=== PATIENT | female | born 1980 | race Caucasian/White ===

== ENCOUNTER 2020-10-14 11:20 | Emergency (ER) | payer OTHER, SELFPAY ==
[2020-10-14 11:47] VITALS: BP 150/85; PULSE 85; RESP 16; TEMP 36.7; O2SAT 98
--- NOTE | 2020-10-14 12:15 | ED.SKABFB ---
HPI - Skin/Abscess/Foreign Bdy General Chief complaint: Skin/Abscess/Foreign Body Stated complaint: Rash on Side Source: patient Mode of arrival: ambulatory Limitations: no limitations History of Present Illness HPI narrative: Patient is a 40-year-old female who presents complaining of rash to left inner thigh x1 day. She reports feeling irritation and burning while at work. She reports large reddened area to left inner thigh, warmth and tenderness. She denies using new lotions, detergents, soaps or any new foods. She denies a history of allergies. She denies using any [id number] medications at this time. complaint: rash Related Data Home Medications Medication Instructions Recorded Confirmed No Home Medications 10/14/20 10/14/20 Allergies Allergy/AdvReac Type Severity Reaction Status Date / Time No Known Allergies Allergy Verified 10/14/20 11:42 Review of Systems Review of Systems: Narrative: CONSTITUTIONAL: Denies fever, chills, or sweats. EYES: Denies visual changes, redness, or discharge. ENT: Denies rhinorrhea, congestion, sore throat, or otalgia. CARDIOVASCULAR: Denies chest pain, palpitations, or edema. RESPIRATORY: Denies cough or dyspnea. GASTROINTESTINAL: Denies abdominal pain, nausea, vomiting, or diarrhea. GENITOURINARY: Denies dysuria or hematuria. SKIN: Pruritic area of redness to left inner thigh MUSCULOSKELETAL: Denies back pain, joint pain, or myalgia. NEUROLOGIC: Denies headache, numbness, dizziness, or weakness. PSYCHIATRIC: Denies anxiety or depression. [facility] Past Medical History Medical History No significant past medical history Surgical History Surgical History No significant past surgical history Family History Family History Other No significant family history Social History Social History (Updated 10/14/20 @ 12:35 by CHI Yang) Smoking status: Never smoker Alcohol intake: current Alcohol use details: occasional Substance use: never Living arrangements: with family Occupation/Education: occupation Gender identity (if verbalized by the patient): Female Exam Narrative: Exam Narrative: GENERAL: Well-appearing, well-nourished, and in no acute distress. HEAD: Normocephalic, atraumatic. EYES: No redness or drainage. ENT: Mucous membranes pink and moist. CHEST: No respiratory distress. HEART: Regular rate and rhythm. EXTREMITIES: Normal range of motion. No edema. SKIN: Approximate 12 x14 cm raised area of erythema, warmth and tenderness with palpation to left inner thigh. NEURO: No focal deficits. Alert and oriented x3. Gait steady. PSYCH: Normal affect. No signs of depression or anxiety. Course Vital Signs Vital signs: Vital Signs Temperature 36.7 C 10/14/20 11:47 Pulse Rate 85 10/14/20 11:47 Respiratory Rate 16 10/14/20 11:47 Blood Pressure 150/85 H 10/14/20 11:47 Pulse Oximetry 98 10/14/20 11:47 Temperature 36.7 C 10/14/20 11:47 Pulse Rate 85 10/14/20 11:47 Respiratory Rate 16 10/14/20 11:47 Blood Pressure 150/85 H 10/14/20 11:47 Pulse Oximetry 98 10/14/20 11:47 Reviewed-patient is informed that they may have pre-hypertension or hypertension based on a blood pressure reading. I recommend the patient call the primary care provider listed on their discharge instructions or a physician of their choice this week to arrange follow-up for further evaluation of possible pre-hypertension or hypertension. MDM - Skin/Abscess/Foreign Bdy MDM Narrative Medical decision making narrative: Patient most likely has mild cellulitis to left inner thigh. Discussed with patient also the possibility of a contact dermatitis, however she is unsure what caused allergy. Patient be started on antibiotics at this time. Patient also to take pred
== END 2020-10-14 12:20 | disposition home or self-care (01) ==
PROVIDERS: Emergency Provider Nurse Practitioner
DX: L25.9 Unspecified contact dermatitis, unspecified cause (principal); L03.116 Cellulitis of left lower limb
CPT/HCPCS: 99213; G0463